=== PATIENT | male | born 1980 | race Caucasian/White ===

== ENCOUNTER 2024-09-01 09:24 | Outpatient (REF) | payer MEDICAID, SELFPAY ==
[2024-09-01 10:28] LABS: Estimated Average Glucose 105 mg/dL; Hemoglobin A1c % 5.3 % (<6.0)
[2024-09-01 10:33] LABS: Basophils Percent Auto 0.4 % (0-2); Eosinophils Absolute Auto 0.1 X10*3/uL (0.0-0.4); Eosinophils Percent Auto 2.3 % (0-4); Hematocrit 37.8 % (42.0-52.0); Hemoglobin 12.6 g/dl (14.0-18.0); Imm Gran Abs Auto 0.02 X10*3/uL (0.00-0.03); Imm Gran Pct Auto 0.4 % (0.0-0.4); Lymphocytes Percent Auto 36.5 % (20-40); MANUAL DIFF FLAG SCAN; Mean Corpuscular HGB Conc 33.3 g/dl (31.0-36.0); Mean Corpuscular Hemoglobin 30.8 pg (27.0-33.0); Mean Corpuscular Volume 92.4 fL (80.0-98.0); Mean Platelet Volume 10.5 fL (9.4-12.4); Monocytes Absolute Auto 0.4 X10*3/uL (0.1-1.2); Monocytes Percent Auto 7.6 % (2-11); Neutrophils Absolute Auto 2.9 x10*3/uL (2.0-8.3); Neutrophils Percent Auto 52.8 % (45-73); Platelet Count 98 X10*3/uL (160-400); Red Blood Count 4.09 X10*6/uL (4.60-5.80); Red Cell Distribution Width 15.4 % (11.0-16.0); White Blood Count 5.6 X10*3/uL (4.8-10.8)
[2024-09-01 10:51] LABS: SLIDE REVIEW VERIFIED
[2024-09-01 10:57] LABS: Alanine Aminotransferase 40 U/L (0-40); Albumin Level 3.7 g/dL (3.5-5.0); Alkaline Phosphatase 110 U/L (39-117); Anion Gap 12 (12-20); Aspartate Amino Transferase 35 U/L (5-37); Bilirubin Total 0.5 mg/dL (0.0-1.0); Blood Urea Nitrogen 13 mg/dL (9-16); Calcium 8.6 mg/dL (8.4-10.2); Carbon Dioxide 30 mmol/L (22-29); Chloride 103 mmol/L (96-108); Cholesterol 145 mg/dL (<200); Estimated Glomerular Filt Rate > 60; Glucose Random 98 mg/dL (60-115); HDL Cholesterol 41 mg/dL (>40); LDL Cholesterol Calculated 92 mg/dL (<100); Potassium 4.5 mmol/L (3.3-5.1); Sodium 140 mmol/L (135-145); Thyroid Stimulating Hormone 1.39 uIU/mL (0.32-4.0); Total Protein 8.1 g/dL (6.5-8.0); Triglycerides 63 mg/dL (<150)
== END 2024-09-01 09:25 | disposition home or self-care (01) ==
LOC: HO.10HDL 09:24
PROVIDERS: Visit Provider Internal Medicine
DX: E66.01 Morbid (severe) obesity due to excess calories (principal); F11.21 Opioid dependence, in remission; I10 Essential (primary) hypertension; M54.50 Low back pain, unspecified
CPT/HCPCS: 36415; 80053; 80061; 83036; 84443; 85025

== ENCOUNTER 2024-10-13 08:44 | Outpatient (REF) | payer MEDICAID, SELFPAY ==
--- NOTE | ~2024-10-13 | XR_ITS ---
XR KNEE RUSS 3V HISTORY: Knee pain. COMPARISON: None. TECHNIQUE: AP view bilateral knees standing, and AP, lateral and patellofemoral views bilateral knees. FINDINGS: RIGHT KNEE: No fracture, dislocation, or suspicious bone lesion. There is mild to moderate medial compartment joint space narrowing. The lateral compartment appears spared. There is mild patellofemoral compartment osteoarthritis and joint space narrowing. Mild spurring of the tibial spines. There is normal patellar alignment with minimal lateral patellar tilt. There is a moderate size joint effusion. Soft tissues appear normal. LEFT KNEE: No fracture, dislocation, or suspicious bone lesion. There is mild medial compartment joint space narrowing. The lateral compartment appears spared. There is mild patellofemoral compartment osteoarthritis and joint space narrowing. Mild spurring of the tibial spines. There is normal patellar alignment with minimal lateral patellar tilt. No evidence of joint effusion. Soft tissues appear normal. XR/XR Knee Russ 3V IMPRESSION: LEFT KNEE: 1. No acute bony abnormalities. 2. Mild medial and patellofemoral compartment osteoarthrosis. RIGHT KNEE: 1. No acute bony abnormalities. 2. Mild to moderate medial and mild patellofemoral compartment osteoarthrosis. 3. Moderate size joint effusion. Electronically signed by: Pranav Coronado MD 10/15/2024 11:29 AM EDT
== END 2024-10-13 08:45 | disposition home or self-care (01) ==
LOC: HO.HOSX 08:44
DX: M25.561 Pain in right knee (principal); M25.562 Pain in left knee; M17.0 Bilateral primary osteoarthritis of knee
CPT/HCPCS: 20610; 73562; 99212; J1010; J2003

== ENCOUNTER 2024-10-13 10:10 | Outpatient (AMB) | payer MEDICAID, SELFPAY ==
[2024-10-13 10:40] VITALS: BMI 56.2
--- NOTE | 2024-10-13 10:40 | MHC.OFFVIS ---
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 Patient reports that he has had ongoing bilateral knee pain for quite some time now. 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 He reports two previous fractures. He is taking Gabapentin and Tylenol for his pain which only provides mild relief. Noo previous brace use. 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 Patient reports that he has had ongoing bilateral knee pain for quite some time now. 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 He reports two previous fractures. He is taking Gabapentin and Tylenol for his pain which only provides mild relief. Noo previous brace use. [facility] Medical History (Updated 10/19/24 @ 11:48 by KITTY Jenkins) Anxiety Depression Morbid obesity Surgical History (Updated 09/16/24 @ 11:27 by Ania Le CMA) Hx of appendectomy Social History (Updated 09/16/24 @ 11:26 by Ania Le CMA) Household Members: Children Housing: Apartment Alcohol intake: never Patient Tobacco Use Status: Current everyday Tobacco user Cigarettes Per Day: 6 Substance Use Type: Marijuana Review of Systems Const All systems reviewed & are unremarkable except as noted in HPI and below Physical Exam Vital Signs: BMI result Body Mass Index 56.2 Extrem Other: On inspection, there is no visible deformity of the right knee No edema, erythema, ecchymosis noted No lacerations, abrasions, open areas No evidence of infection Patient reports no tenderness to palpation in the patella, parapatellar region, medial and lateral joint line, posterior knee Patient is able to extend the left knee to 0 degrees and flex to approximately 120 degrees without difficulty No ligamentous laxity noted Distal sensation intact Capillary refill brisk Negative [facility] Procedures AMB Joint Injection/Aspiration Joint Injection/Aspiration Primary Site: right knee Prep: site was prepped using aseptic technique, ethochloride spray was applied and injection warnings given Approach Used: anterolateral Procedure: The patient tolerated the procedure well and there was some relief with the local anesthesia Coding 81862 - Large joint Procedure code (CPT) selection complete Results Reviewed Results Reviewed: X-rays obtained in the office today and independently reviewed by me, Kannan Santos PA-C, demonstrate mild osteoarthritis of bilateral knees, worst in the medial compartment bilaterally. Assessment & Plan Assessment & Plan (1) Bilateral primary osteoarthritis of knee: Code(s): M17.0 - Bilateral primary osteoarthritis of knee Category: Medical Plan 1. Right knee osteoarthritis Patient was educated about this condition Patient was educated about the treatment options available The risks and benefits of a steroid injection including but not limited to risk of damage to blood vessels, nerves, tendons, infection, skin bleaching, failure to improve symptoms, increased pain, and possible need for further injections or other intervention were discussed with the patient and the patient wishes to proceed with the steroid injection. Once consent was obtained, I aseptically prepped the area over the anterolateral joint line of the right knee. I then injected the area over the lateral epicondyle with a combination of 80 mg of dexamethasone and 8 mL of 1% lidocaine. The patient tolerated the procedure well with no complications. If the patient continues to experience symptoms over the following few weeks or months, they can make an appointment to return and discuss alternative treatment measures, such as physical therapy. 2. Left knee osteoarthritis Patient states he would like to hold off on left knee injection at this time who see if injections effective in the right knee Patient will follow-up as needed or lifting injection Orders: Orders XR Knee Russ 3V 10/13/24 M25.569 - Pain in unspecified knee Coding Level of Care Code New Pt Level 3 (86049) Diagnoses Bilateral primary osteoarthritis of knee M17.0 CPT Codes Coding - Large joint: 60358 - Large joint ([id number])
== END 2024-10-13 11:25 | disposition home or self-care (01) ==
LOC: HO.HOS 10:11
PROVIDERS: PCP Internal Medicine
DX: M17.0 Bilateral primary osteoarthritis of knee (principal)
CPT/HCPCS: 20610; 99203

== ENCOUNTER → 2024-10-13 10:23 | Outpatient (BNV) | payer MEDICAID, SELFPAY | PROVIDERS: Visit Provider Radiology Diagnostic Radiology | DX: M17.0 Bilateral primary osteoarthritis of knee (principal); M25.461 Effusion, right knee; M25.462 Effusion, left knee | CPT/HCPCS: 73562 ==

== ENCOUNTER 2024-10-16 08:23 | Outpatient (AMB) | payer MEDICAID, SELFPAY ==
--- NOTE | 2024-10-16 08:24 | A.OFFVIS_ITS ---
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*: Details: Start time: 8.15am, End time: 9.05am ?I spent 45 minutes speaking with the patient on the phone plus an additional 5 minutes reviewing and updating records for a total of 50 minutes HPI Comments Details: Previous weight loss efforts: self diet and exercise Wakes up: 6am, Sleeps: 9pm Breakfast: 8am (eggs and toast with pathak, oatmeal, sandwich) Lunch: skips Dinner: 6pm (rice, chicken, pork chops ,pasta) Snacks: 1pm (corn flakes, bread, soup), 1-2 times after dinner (ice cream, cookies, chocolate) Exercise: none Beverages: Coffee: (2 cups/d with creamer with sugar), tea: none, soda: none, juice: (fruit punch daily), ETOH: none PFSH Medical History (Updated 10/16/24 @ 08:31 by Ambrosio Grubbs MD) Anxiety Depression Morbid obesity Surgical History (Updated 09/16/24 @ 11:27 by Ania Le CMA) Hx of appendectomy Social History (Updated 09/16/24 @ 11:26 by Ania Le CMA) Household Members: Children Housing: Apartment Alcohol intake: never Patient Tobacco Use Status: Current everyday Tobacco user Cigarettes Per Day: 6 Substance Use Type: Marijuana Telehealth Telehealth Telehealth Platform: Telephone Location of provider rendering services: practice address Location of patient: address on file Patient Identification confirmed using: Name, : Yes Telehealth method: voice only Patient verbally consented to treatment: Yes Patient verbally consented to billing insurance company: Yes Patient informed of any privacy concerns related to visit: Yes Minutes spent on Phone/Video with Pt.: 50 Assessment & Plan Assessment & Plan (1) Morbid obesity: Code(s): E66.01 - Morbid (severe) obesity due to excess calories Category: Medical Plan: 1.? Plan for lap sleeve gastrectomy. If diaphragmatic or ventral hernias are present at time of surgery, these will be repaired laparoscopically as well. I emphasized the importance of close follow-up, adherence to instructions and good communication. The surgery does not replace the need to change your lifestlyle which is the cause of the obesity problem. The surgery provides the motivation to try again to change your lifestyle, it reduces the appetite and make the transition to a better lifestyle easier and doubles the amount of weight you would lose compared to doing the lifestyle change without the surgery. You will need to be on a liquid diet with protein shakes for 2 weeks before surgery to maximize weight loss and boost your nutritional status to recover better from surgery and also for the first two weeks after surgery to let the stomach heal before we introduce other foods. After the first 2 weeks we will introduce protein bars and soft foods like scrambled eggs, cottage cheese and yogurt and after the 6th week will introduce meat, fish and cooked vegetables in small amounts. Over time you should be able to eat everything in small amounts. Side effects like nausea, vomiting, heartburn or abdominal pain are not common in the practice unless you are not following in the practice. This operation requires lifetime commitment to following in our practice and communication with me. You will much less weight and experience side effects if you don?t communicate or not following in the practice. Complications are rare and in our practice is about 1/10 of the national average. However, you can develop bleeding that may require transfusion (hasn?t happened for year in the practice), you may from complications (we did not have any deaths in the practice) and infections. Infections are usually a result of breakdown in communication or not understanding or following directions correctly. They are difficult to treat, they can happen during the first 6 weeks, they may require to be in the hospital for weeks or even months, not being able to eat by mouth and you may have drains and surgeries to try and correct the issue. Other risks and complications include possible conversion to an open procedure, leaks, small bowel obstruction, blood clots, cardiac, or pulmonary complications, as custodial complications such as ulcers, insufficient weight loss and vitamin deficiencies. 2.? Nutritional counseling. Start with one premade PREMIER protein shake (buy at [employer] or [employer]) at 7am-9am, 1 protein bar (Fit Crunch protein bars, buy at [employer] or [employer]) at 10am-12pm, another premade PREMIER shake at 1pm-3pm, another Fit Crunch protein bar at 4pm-6pm, dinner at 7pm (10 forks of protein and 10 forks of salad/vegetables) So you do 2 protein shakes, 2 protein bars and one meal per day. Meal to include lean meat (beef, fish, pork, turkey, chicken), or bolivian yogurt, or egg whites, or beans with a salad with olive oil and fruits (berries, pears, apples, kiwi). Avoid salt, breads, potatoes, rice, pasta, desserts. 3. Each shake would be drunk slowly, like coffee in a period of 2 hours. 4. Cut each bar in 4 pieces and eat each piece in 30min ?to make each bar last 2 hours. 5. I emphasized the importance of measuring accurately the food portion and measure it when serving the food in plate 6. The meal portions include 10 full-size forks of meat and 10 full-size forks of salad. You always eat the meat portion but you can replace up to 5 forks for salad/vegetables with rice, potatoes or pasta, or a fruit ?if you like. The less you do it the better weight loss will be. 7. One full-size fork is what it can be scooped on the fork without falling aside and not what can be bit with the fork. Use regular forks like those you find in a typical restaurant. 8.? Please buy the body composition scale we discussed and send me weight measurements as soon as possible and then once a week. Always include your diet and exercise plan. 9. Start walking outside daily, tracking calories with a goal of 300 calories per day, daily. Goal is to burn 2000 calories per week on exercise, which means either 300 calories daily. 10. The best choice would be to purchase a stationary bike at home that can track calories. Let me know if you do so I can give you an exercise plan. 11. Goal is to lose at least 1.5-2lbs per week 12. Goal to lose 10% of your weight before surgery, which is about 35lbs. Ultimate weight goal: 340lbs before surgery 13. Please follow the diet plan exactly without any change. If you don't like something about the plan or you feel hungry you need to communicate with me so I can help you revise the plan. You should not change the plan yourself 14. To be scheduled for EGD to assess the stomach's anatomy. The possibility of biopsies was discussed. Patient needs to avoid use of NSAIDs and aspirin for 1 week prior to EGD. You must be on liquids only the day before your endoscopy. Risks of perforation and bleeding was discussed with the patient. This will be an outpatient procedure with IV sedation. Orders: Orders Hemoglobin A1c Today E66.01 - Morbid (severe) obesity due to excess calories H Pylori Breath Test Today E66.01 - Morbid (severe) obesity due to excess selvin ories IRON PROFILE Today E66.01 - Morbid (severe) obesity due to excess calories Comprehensive Met. Panel Today E66.01 - Morbid (severe) obesity due to excess calories Vitamin A Today E66.01 - Morbid (severe) obesity due to excess calories Ferritin Today E66.01 - Morbid (severe) obesity due to excess calories XR chest 2V Today E66.01 - Morbid (severe) obesity due to excess calories RT home sleep study Today E66.01 - Morbid (severe) obesity due to excess calories Insulin Today E66.01 - Morbid (severe) obesity due to excess calories Complete Blood Count Auto Diff Today E66.01 - Morbid (severe) obesity due to excess calories Lipid Panel Today E66.01 - Morbid (severe) obesity due to excess calories Vitamin B12 and Folate Today E66.01 - Morbid (severe) obesity due to excess calories Zinc Today E66.01 - Morbid (severe) obesity due to excess calories C Reactive Protein Today E66.01 - Morbid (severe) obesity due to excess calories Vitamin B1 Today E66.01 - Morbid (severe) obesity due to excess calories TSH reflex Free T4 Today E66.01 - Morbid (severe) obesity due to excess calories Vitamin D 25-OH Total Today E66.01 - Morbid (severe) obesity due to excess calories US abdomen comp w elastography Today E66.01 - Morbid (severe) obesity due to excess calories ECG 12 lead EKG Today E66.01 - Morbid (severe) obesity due to excess calories FL upper GI w air Today E66.01 - Morbid (severe) obesity due to excess calories Referrals Behavioral Health Referral E66.01 - Morbid (severe) obesity due to excess calories Nutrition/Dietitian Referral E66.01 - Morbid (severe) obesity due to excess calories
[2024-10-16 08:38] VITALS: BMI 56.2
== END 2024-10-16 09:06 | disposition home or self-care (01) ==
LOC: HO.HBS 08:23
PROVIDERS: Visit Provider Surgery
DX: E66.01 Morbid (severe) obesity due to excess calories (principal)
CPT/HCPCS: 99204

== ENCOUNTER → 2024-10-16 08:23 | Outpatient (BNVA) | payer MEDICAID, SELFPAY | PROVIDERS: Visit Provider Surgery ==

== ENCOUNTER 2024-11-16 12:17 | Outpatient (AMB) | payer OTHER, SELFPAY ==
--- NOTE | 2024-11-16 12:10 | A.OFFWM_ITS ---
Intake Intake Visit Reasons: TV BH Intake Allergies No Known Allergies Allergy (Verified 10/16/24 08:27) FOR[facility]LY [facility] Medical History (Updated 10/19/24 @ 11:48 by KITTY Jenkins) Anxiety Depression Morbid obesity Surgical History (Updated 09/16/24 @ 11:27 by Ania Le CMA) Hx of appendectomy Social History (Updated 09/16/24 @ 11:26 by Ania Le CMA) Household Members: Children Housing: Apartment Alcohol intake: never Patient Tobacco Use Status: Current everyday Tobacco user Cigarettes Per Day: 6 Substance Use Type: Marijuana Behavioral Health Assessment Weight Management Therapy Therapy Notes Details The patient is a 44-year-old male presenting for initial visit to start behavioral health assessment as part of the surgical weight loss program. He is self-referred, having learned about the program through family members and friends who have undergone weight loss surgery. He reports motivation to improve his overall health, enhance his physical appearance, and feel better about himself. The patient is engaged in ongoing mental health treatment, attending weekly telehealth therapy sessions and monthly psychiatric appointments. He is currently prescribed Seroquel 200 mg for sleep. He reports a history of trauma, depression, anxiety, and substance use. In addition, he receives medication- assisted treatment (MAT) and participates in weekly substance use counseling at [facility]. Presenting Concerns Referral Source WMP-Provider Reason for referral Completion of behavioral health assessment as part of process for weight-loss surgery. Precipitating Event Obesity. Living Situation Current Living Situation Relative's/Guardian's Shailesh At risk of losing current housing? No Satisfied with current living situation? Yes Comments PT lives at his oldest daughter home, and her 2 grandkids. Food/Weight/Diet Expectations of change Goal to lose 10% of your weight before surgery, which is about 35 lbs. Ultimate weight goal: 340 lbs before surgery Most recent weight as of today 11/16/2024: 383 lbs Patient goals are PT is implementing the following: Current meal plan: 2 protein shakes, 2 protein bars and one meal per day. Exercise plan: History/Relationship with food Example of meals before starting the program: Breakfast: Lunch: Dinner: Snacks: Drinks/Liquids: History/Relationship with weight In the last 10 years, the patient's Lowest weight was and highest Social History Family history and relationship PT is single, never . He has 3 daughters. Father , mother alive, he has 3 siblings, 1 . He is the oldest of his siblings. 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 He was recently in [place] caring for his mother, who is older and had some medical issues and had a surgery. Developmental history and status PT had issues since he was born; he used a walking device as his feet were not aligned. Started school late due to other physical issues. Also had some attentional is sues. Social support Mother. His children don't support him having surgery. Community support and [facility] providers. Latter-Day/Spirituality Raised as Anabaptism, at this time He believes in God but doesn't practice or is aligned to any yazdanism. Cultural/Ethnic information PT was born in [place]. He just relocated back to [place] about a year ago; he initially moved here at age 5, but has been moving back and forth a couple of times in his life. PT is bilingual. Mental Health and Addiction Treatment Current/Past substance abuse? Yes Comments PT has a history of heroin, cocaine use. Started using Substances at age 11. Did detox programs several years ago. Sober 4 years ago. PT currently attends a MAT in [place], [place] gets prescribed Methadone 80mg daily. Alcohol: None. Cigarettes/Tobacco: 1-2 at day. couple times at day. Cannabis/Edibles: None. Current/Past addictive behavior concerns? Yes Psychiatric history PT attends counseling and outpatient psychiatric treatment. Sees his therapist weekly over telehealth and a prescriber every month and gets prescribed Seroquel 200mg for sleep. PT reports a history of trauma, depression, anxiety, and substance use. Also receives medication-assisted treatment for N[facility] at [facility] and meets with [facility] counselor weekly. * PT will provide information about MH providers at the next visit. Questionnaires PHQ-9 Over the last 2 weeks, how often have you been bothered by any of the following problems? 1. Little interest or pleasure in doing things: more than half the days 2. Feeling down, depressed, or hopeless: several days 3. Trouble falling or staying asleep, or sleeping too much: several days 4. Feeling tired or having little energy: more than half the days 5. Poor appetite or overeating: several days 6. Feeling bad about yourself - or that you are a failure or have let yourself or your family down: nearly every day 7. Trouble concentrating on things, such as reading the newspaper or watching television: several days 8. Moving or speaking so slowly that other people could have noticed. Or the opposite - being so fidgety or restless that you have been moving around a lot more than usual: not at all 9. Thoughts that you would be better off or of hurting yourself in some way: not at all Total score: 11 Depression Screening Interpretation: Positive (From new PT pack done 09/16/2024) Depression Screening Done: Yes Source: Developed by Drs. Alverto Thompson, Coleen Loaiza, Dayton Khoury and colleagues, with an educational nishi from [employer] Binge Eating Scale Group 1 A. I don't feel self-conscious about my wt. or body size when I'm with others. B. I feel concerned about how I look to others, but it normally does not make me fell disappointed with myself C. I do get self-conscious about my appearance and wt. which makes me feel disappointed in myself. D. I feel very self-conscious about my wt. and frequently I feel intense shame and disgust for myself. I try to avoid social contacts because of my self- consciousness. Response Group 1: D Group 2 A. I don't have any difficulty eating slowly in the proper manner. B. Although I seem to gobble down foods, I don't end up feeling stuffed because of eating to much. C. At times, I tend to eat quickly and then, I feel uncomfortably full afterwards. D. I have the habit of bolting down my food, without really chewing it. When this happens I usually feel uncomfortably stuffed because I've eaten to much. Response Group 2: C Group 3 A. I feel capable to control my eating urges when I want to. B. I feel like I have failed to control my eating more than the average person. C. I feel utterly helpless when it comes to feeling in control of my eating urges. D. Because I feel so helpless about controlling my eating I have become very desperate about trying to get control. Response Group 3: B Group 4 A. I don't have the habit of eating when I'm bored. B. I sometimes eat when I'm bored, but often I'm able to get busy and get my mind off food. C. I have a regular habit of eating when I'm bored, but occasionally, I can use some other activity to get my mind off eating. D. I have a strong habit of eating when I'm bored. Nothing seems to help me breath the habit. Response Group 4: C Group 5 A. I'm usually physically hungry when I eat something. B. Occasionally, I eat something on impulse even though I really am not hungry. C. I have the regular habit of eating foods, that I might not really enjoy, to satisfy a hungry feeling even though physically, I don't need the food. D. Although I'm not physically hungry, I get a hungry feeling in my mouth that only seems to be satisfied when I eat a food, like sandwich, that fills my mouth. Sometimes, when I eat the food to satisfy my mouth hunger, I then spit the food out so I won't gain weight. Response Group 5: D Group 6 A. I don't feel any guilt or self-hate after I overeat. B. After I overeat, occasionally I feel guilt or self-hate. C. Almost all the time I experience strong guilt or self-hate after I overeat. Response Group 6: C Group 7 A. I don't lose total control of my eating when dieting even after periods when I overeat. B. Sometimes when I eat a forbidden food on a diet, I feel like I blew it and eat even more. C. Frequently, I have the habit of saying to myself, I've blown it now, why not go all the way, when I overeat on a diet. When that happens I eat more. D. I have a regular habit of starting a strict diets for myself but I break the diets by going on an eating binge. My life seems to be either a feast or famine. Response Group 7: D Group 8 A. I rarely eat so much food that I feel uncomfortably stuffed afterwards. B. Usually about once a month, I each such a quantity of food, I end up feeling very stuffed. C. I have regular periods during the month when I eat large amounts of food, either at mealtime or at snacks. D. I eat so much food that I regularly feel quite uncomfortable after eating and sometimes a bit nauseous. Response Group 8: B Group 9 A. My level of calorie intake does not go up very high or go down very low on a regular basis. B. Sometimes after I overeat, I will try to reduce my caloric intake to almost nothing to compensate for the excess calories I've eaten. C. I have a regular habit of overeating during the night. It seems that my routine is not to be hungry in the morning but overeat in the evening. D. In my adult years, I have had week-long periods where I practically starve myself. This follows periods when I overeat. It seems I live a life of either feast or famine. Response Group 9: C Group 10 A. I usually am able to stop eating when I want to. I know when enough is enough. B. Every so often, I experience a compulsion to eat which I can't seem to control. C. Frequently, I experience strong urges to eat which I seem unable to control, but at other times I can control my eating urges. D. I feel incapable of controlling urges to eat. I have a fear of not being able to stop eating voluntarily. Response Group 10: A Group 11 A. I don't have any problem stopping eating when I feel full. B. I usually can stop eating when I feel full but occasionally overeat leaving me feeling uncomfortably stuffed. C. I have a problem stopping eating once I start and usually I feel uncomfortably stuffed after I eat a meal. D. Because I have a problem not being able to stop eating when I want, I sometimes have to induce vomiting to relieve my stuffed feeling. Response Group 11: A Group 12 A. I seem to eat just as much when I'm with others, Family social gatherings as when I'm by myself. B. Sometimes, when I'm with other persons, I don't eat as much as I want to eat because I'm self-conscious about my eating. C. Frequently, I eat only a small amount of food when others are present, because I'm very embarrassed about my eating. D. I feel so ashamed about overeating that I pick times to overeat when I know no one will see me. I feel like a closet eater. Response Group 12: B Group 13 A. I eat three meals a day with only an occasional between meal snack. B. I eat 3 meals a day, but I also normally snack between meals. C. When I am snacking heavily, I get in the habit of skipping regular meals. D. There are regular periods when I seem to be continually eating, with no planned meals. Response Group 13: B Group 14 A. I don't think much about trying to control unwanted eating urges. B. At least some of the time, I feel my thoughts are pre-occupied with trying to control my eating urges. C. I feel that frequently I spend much time thinking about how much I ate or about trying not to eat anymore. D. It seems to me that most of my waking hours are pre-occupied by thoughts about eating or not eating. I feel like I'm constantly struggling not to eat. Response Group 14: A Group 15 A. I don't think about food a great deal. B. I have strong craving for food but they last only for brief periods of time. C. I have days when I can't seem to think about anything else but food. D. Most of my days seem to be pre-occupied with thoughts about food. I feel like I live to eat. Response Group 15: B Group 16 A. I usually know whether or not I'm physically hungry. I take the right portion of food to satisfy me. B. Occasionally, I feel uncertain about knowing whether or not I'm physically hungry. A these times it's hard to know how much food I should take to satisfy me. C. Even though I might know how many calories I should eat, I don't have any idea what is a normal amount of food for me. Response Group 16: B Binge Eating Score: 23 Score less than 17 Minimal Risk Score between 18-26 Moderate Risk Score between 27-46 High Risk Assessment & Plan Assessment & Plan (1) History of substance dependence: Code(s): F19.21 - Other psychoactive substance dependence, in remission (2) Trauma and stressor-related disorder: Code(s): F43.9 - Reaction to severe stress, unspecified (3) Pre-bariatric surgery psychological evaluation: Code(s): Z71.89 - Other specified counseling Plan The patient has not been cleared at this time, as the behavioral health assessment was not completed during today?s visit. He will return in three weeks to continue the evaluation. Next Appointment: December 07, 2024 at 11:00 AM Telehealth ? Video Visit Telehealth Telehealth Telehealth Platform: [facility] Location of provider rendering services: other Location of patient: address on file Patient Identification confirmed using: Name, : Yes Telehealth method: voice only Patient verbally consented to treatment: Yes Patient verbally consented to billing insurance company: Yes Patient informed of any privacy concerns related to visit: Yes Minutes spent on Phone/Video with Pt.: 50 Coding Level of Care Code New Pt Tele Psy Diag Eval (64396) Patient Type New Diagnoses History of substance dependence F19.21 Trauma and stressor-related disorder F43.9 Pre-bariatric surgery psychological evaluation Z71.89 Time Spent (min) 50
== END 2024-11-16 13:07 | disposition home or self-care (01) ==
LOC: HO.HBST 12:17
PROVIDERS: PCP Internal Medicine; Visit Provider Counselor Mental Health
DX: F19.21 Other psychoactive substance dependence, in remission (principal); F43.9 Reaction to severe stress, unspecified; Z71.89 Other specified counseling
CPT/HCPCS: 90837

== ENCOUNTER → 2024-11-16 12:17 | Outpatient (BNVA) | payer OTHER, MEDICAID, SELFPAY | PROVIDERS: PCP Internal Medicine; Visit Provider Counselor Mental Health ==

== ENCOUNTER 2024-11-25 08:17 | Day surgery (SDC) | payer MEDICAID, SELFPAY ==
[2024-11-23 12:31] VITALS: BMI 56.2
--- NOTE | 2024-11-23 12:35 | HO.ANESPROP2 ---
Documented by User: Deisi Bailey NP 11/23/24 12:36 HPI - Anesthesia Eval Consult details Narrative: 44yo M for Upper Endoscopy Methadone daily PMFSH Active Problems Active Problems: All Active Problems Bilateral primary osteoarthritis of knee (Acute) Knee pain (Acute) Anxiety (Acute) Depression (Acute) Morbid obesity (Acute) Past Medical History Medical History Osteoarthritis Anxiety Depression Morbid obesity Surgical History Surgical History H/O hand surgery Hx of appendectomy Social History Social History Household Members: Children Housing: Apartment Alcohol intake: never Patient Tobacco Use Status: Current everyday Tobacco user Tobacco use type: Cigarette Cigarettes Per Day: 3 Use of substances other than those prescribed or required for medical reasons: Yes Substance Use Type: Marijuana Are you DNR?: No Advance Directives: No Advance Directives Information Provided: Yes Meds Allergies Allergy/AdvReac Type Severity Reaction Status Date / Time No Known Allergies Allergy Verified 10/16/24 08:27 Home Medications ?Medication ?Instructions ?Recorded ?Confirmed ?Last Taken ?Type gabapentin 400 mg capsule 400 mg PO TID 09/16/24 11/23/24 Unknown History methadone 5 mg/5 mL oral solution 80 mg PO DAILY 09/16/24 11/23/24 11/25/24 History quetiapine 200 mg tablet (Seroquel) 200 mg PO BEDTIME 09/16/24 11/23/24 Unknown History Exam Height,Weight and Vital Signs: Height 5 ft 8.5 in Weight 170.211 kg Assessment and Plan Assessment Anesthesia Assessment: Chart Reviewed Documented by User: Kirsty Grijalva MD 11/25/24 09:42 PMFSH Past Medical History Medical History Osteoarthritis Anxiety Depression Morbid obesity Surgical History Surgical History H/O hand surgery Hx of appendectomy History of Problems with Anesthesia: No Social History Social History Household Members: Children Housing: Apartment Alcohol intake: never Patient Tobacco Use Status: Current everyday Tobacco user Tobacco use type: Cigarette Cigarettes Per Day: 3 Use of substances other than those prescribed or required for medical reasons: Yes Substance Use Type: Marijuana Are you DNR?: No Advance Directives: No Advance Directives Information Provided: Yes Meds Allergies Allergy/AdvReac Type Severity Reaction Status Date / Time No Known Allergies Allergy Verified 10/16/24 08:27 Home Medications ?Medication ?Instructions ?Recorded ?Confirmed ?Last Taken ?Type gabapentin 400 mg capsule 400 mg PO TID 09/16/24 11/23/24 Unknown History methadone 5 mg/5 mL oral solution 80 mg PO DAILY 09/16/24 11/23/24 11/25/24 History quetiapine 200 mg tablet (Seroquel) 200 mg PO BEDTIME 09/16/24 11/23/24 Unknown History Exam Airway Mallampati Class: III TM Dist: >3cm Neck ROM: Full Loose/Missing/Broken Teeth: Yes and Upper Heart: RRR Lungs: CTA Assessment and Plan Assessment Anesthesia Assessment: Anesthesia Plan Discussed Final Anesthetic Review History of Problems with Anesthesia: No NPO: Yes ASA Class: III Final Preanesthetic Review: Meds/Allgs Chart Reviewed, Consent Obtained/Reviewed and Anes Risks/Benef Reviewed Patient Risk: Intermediate Procedure Risk: Intermediate Anesthetic Plan Anesthetic Plan: MAC: Disposition: Standard PACU
[2024-11-25 09:17] VITALS: BMI 54.8
[2024-11-25 09:23] VITALS: BP 114/69; PULSE 69; RESP 16; TEMP 36.3; O2SAT 96
[2024-11-25] MEDS: Lactated Ringers 1,000 ML 80 ML IVCONT (09:39)
--- NOTE | 2024-11-25 09:54 | MHC.SHP ---
Pre-Procedural Eval Section A - 24 Hr Update-Section A only Date of Service: 11/25/24 The patient is an INPATIENT: No The patient has been examined within 24 hours of the surgical procedure. The History & Physical has been completed within 30 days and I have reviewed it.: Yes Section B - Complete if H&P > 30 days Chief Complaint: Morbid (severe) obesity due to excess calories Relevant Family History (Specify if Yes): No Relevant Social History: None Present Medications: None Medical History: No relevant PMH History of Previous Operations: No relevant previous surgery Allergies: Allergies Allergy/AdvReac Type Severity Reaction Status Date / Time No Known Allergies Allergy Verified 10/16/24 08:27 Review of Systems Sugical H&P ROS: Negative: Constitution, Cardiovascular, Respiratory, Neurological, Psychiatric, Hem-Onc, Allergic/Immunologic, Gastrointestinal, Genitourinary, Musculoskeletal, Integumentary, Endocrine and Eyes/Ears/Nose/Throat Exam Surgical H&P Exam: Normal: HEENT, Normal: Heart, Normal: Lungs, Normal: Extremities, Normal: Abdomen, Normal: Skin and Normal: Neurological Plan Diagnosis/Plan: Unchanged (EGD to assess the stomach's anatomy. Risks of bleeding and perforation were discussed with the patient and he is in agreement with the plan.) I have reviewed the history and physical and performed a pertinent physical examination on my patient. No changes have occurred unless specified. Time Spent With Patient Time: Total time managing care of this patient today ____ minutes.
--- NOTE | 2024-11-25 09:56 | P.BOP_ITS ---
Brief Operative Note Date of Service: 11/25/24 Pre-op diagnosis: Morbid obesity Post-op diagnosis: same Procedure: PROCEDURE DATE: 11/25/2024 PREOPERATIVE DIAGNOSIS: Morbid obesity POSTOPERATIVE DIAGNOSIS: ?Same as above. 1) gastritis PROCEDURE: Gnfmxcue-ldffhm-yepxkieatoqt with biopsies Surgeon: Ramez Grubbs M.D.. Ph.D. Roof Shingler: None ? Anesthesia: IV sedation Estimated blood loss: ?Minimal FINDINGS AND PROCEDURE: ? OPERATIVE INDICATIONS: ?The patient is a 44 year old male known to me who is interested in bariatric surgery. Based on this information I recommended an upper endoscopy to evaluate the stomach's anatomy. Risks and complications of the surgery were discussed with the patient in advance particularly the possibility of perforation or bleeding that may require surgical intervention. The patient understood the risks and was in agreement with the plan. ? PROCEDURE: After informed consent was obtained by the patient, the patient was ?transferred to the Operating Room and was placed in the supine position.? After successful induction of IV sedation, a mouth block was inserted and the patient was placed in the left lateral decubitus position. An upper endoscopy was performed next, the oropharynx and esophagus appeared within the normal limits. There was no hiatal hernia. The z-line was smooth. Two biopsies were obtained from the distal esophagus 2-3 cm proximal to the GE junction and two additional biopsies from the GE junction. The stomach was entered and it appeared to be of normal size. There was mild gastritis. There was no stricture or ulcer. A biopsy was obtained from the gastric fundus and the antrum. No significant bleeding was noted from any of the biopsy sites. Retroflexion of the scope confirmed a normal GE junction. The scope was then advanced into the duodenum which appeared to be normal as well. At that point the duodenum ?and the stomach were decompressed and the scope was withdrawn from the patient's mouth. The patient extubated and was transferred in stable condition to the Recovery Room for further care. I was present and performed all steps of the procedure. There were no residents to assist with this case. Lang Grubbs M.D., Ph.D. Surgeon: Ambrosio Grubbs MD Anesthesia: MAC Was an Roof Shingler used for this Procedure?: No Estimated blood loss (mL): 0 IV fluids (mL): 400 Urine output (mL): 0 (No Fnog to record output) Pathology: other (1) antrum x1, 2) fundus x1, 3) GE junction x2, 4) distal esophagus x2) Condition: stable Disposition: PACU
[2024-11-25 10:10] VITALS: BP 128/70; PULSE 70; RESP 12; TEMP 36.2; O2SAT 97
[2024-11-25 10:25] VITALS: BP 130/70; PULSE 80; RESP 18; TEMP 36.4; O2SAT 96
== END 2024-11-25 10:58 | disposition home or self-care (01) ==
PROVIDERS: PCP Internal Medicine; Visit Provider Surgery
PROC: 0DJ08ZZ Inspection of Upper Intestinal Tract, Via Natural or Artificial Opening Endoscopic (ICD-10-PCS; CPT 43235; principal; 2024-11-25 10:50)
DX: E66.01 Morbid (severe) obesity due to excess calories (principal); Z68.43 Body mass index [BMI] 50.0-59.9, adult; K29.60 Other gastritis without bleeding; F32.A Depression, unspecified; F41.9 Anxiety disorder, unspecified; Z79.899 Other long term (current) drug therapy; F17.210 Nicotine dependence, cigarettes, uncomplicated; Z98.890 Other specified postprocedural states
CPT/HCPCS: 43239; 88305; 88313; 88342; J2003; J2704

== ENCOUNTER → 2024-11-25 08:17 | Outpatient (BNV) | payer MEDICAID, SELFPAY | PROVIDERS: PCP Internal Medicine; Visit Provider Surgery | DX: K29.70 Gastritis, unspecified, without bleeding (principal) | CPT/HCPCS: 43239 ==

== ENCOUNTER 2024-12-01 08:29 | Outpatient (REF) | payer MEDICAID, SELFPAY ==
--- NOTE | ~2024-12-01 | US_ITS ---
EXAMINATION: US COMPLETE ABDOMEN WITH LIVER ELASTOGRAPHY CLINICAL INFORMATION: Obesity due to excess calories. COMPARISON: None available. TECHNIQUE: Real-time imaging of the abdominal viscera. Noninvasive ultrasound liver fibrosis assessment is performed using Zuleyka ElastPQ point quantification shear wave elastography (pSWE) with a C5-2 MHz transducer. Multiple elastography samples are obtained. FINDINGS: As per technologist note, severely limited exam due to patient body habitus. PANCREAS: The visualized pancreatic head and body are normal in appearance. The remainder of the pancreas is obscured from visualization by the overlying bowel gas. ABDOMINAL AORTA: No aortic aneurysm is seen. INFERIOR VENA CAVA: Visualized portions are normal. LIVER: The liver is mildly enlarged. It is normal in contour. There is diffusely increased parenchymal echogenicity. No focal lesion or intrahepatic biliary duct dilatation. The right lobe measures 19.8 cm in length. The left lobe measures 14.5 cm in length. Portal flow is towards the liver (hepatopetal). Shear wave liver elastography median stiffness is 1.15 m/s (reference: normal median stiffness is 1.3 m/s or less). IQR/median stiffness to assess sampling precision is 0.19 (reference: good quality data set is IQR/median stiffness of 0.15 or less). GALLBLADDER: The gallbladder is physiologically distended without evidence of stones, sludge, polyps, wall thickening or pericholecystic fluid. COMMON BILE DUCT: Borderline dilated measuring 0.9 cm in diameter. No obstructing abnormality identified. RIGHT KIDNEY: No hydronephrosis. No renal calculi or focal parenchymal lesions. The kidney measures 13.6 cm in maximum dimension. LEFT KIDNEY: No hydronephrosis. No renal calculi or focal parenchymal lesions. The kidney measures 12.0 cm in maximum dimension. SPLEEN: Unremarkable. The spleen measures 15.6 cm in maximum dimension. FREE FLUID: None seen. US/US abdomen comp w elastography IMPRESSION: 1. Diffusely increased echogenicity of the liver without focal lesion. This is likely secondary to hepatic steatosis. No intrahepatic biliary dilatation. 2. Liver elastography: Although measurements appear to rule out compensated advanced chronic liver disease, there is statistical variability of the sampling which decreases accuracy. 3. Normal gallbladder. Top normal common bile duct at 0.9 cm. 4. Normal kidneys and spleen. REFERENCE: Society of Radiologists in Ultrasound Liver Stiffness Thresholds (2019): LIVER STIFFNESS THRESHOLDS: *Liver Stiffness equal or less than 1.3 m/s: High probability of being normal. *Liver Stiffness less than 1.7 m/s: In the absence of other known clinical signs, rules out compensated advanced chronic liver disease. *Liver Stiffness 1.7-2.1 m/s: Suggestive of compensated advanced chronic liver disease but need further test for confirmation. *Liver Stiffness over 2.1 m/s: Rules in compensated advanced chronic liver disease. *Liver Stiffness over 2.4 m/s: Suggestive of clinically significant portal hypertension. QUALITY OF DATA SET: *IQR/Median value equal or less than 0.15 implies a quality data set. *IQR/Median value over 0.15 implies a poor quality data set. SIGNIFICANT CHANGE FROM PRIOR EXAM: Significant change if liver stiffness measurement is 10% or greater from prior exam. OTHER CONSIDERATIONS: The stage of liver fibrosis may be overestimated in the setting of acute hepatitis, liver inflammation, elevated liver function tests, hepatic vascular congestion, obstructive cholestasis, non-fasting state, and infiltrative diseases such as amyloidosis and lymphoma. In some patients with NAFLD, the liver stiffness thresholds for compensated advanced chronic liver disease may be lower. In causes other than viral hepatitis and NAFLD, liver stiffness thresholds are not well established. Electronically signed by: Pranav Coronado MD 12/01/2024 10:52 AM EDT
--- NOTE | ~2024-12-01 | XR_ITS ---
EXAMINATION: XR CHEST CLINICAL INFORMATION: E66.01 - Morbid (severe) obesity due to excess calories COMPARISON: None available. TECHNIQUE: 2 views of the chest were obtained. FINDINGS: No consolidation, pleural effusion or pneumothorax. Cardiomediastinal silhouette size is normal. Osseous structures are intact. Patient's large body habitus/obesity. XR/XR chest 2V IMPRESSION: No acute airspace disease. Normal chest x-ray. Electronically signed by: Eric Brink MD 12/01/2024 09:17 AM EDT
== END 2024-12-01 08:30 | disposition home or self-care (01) ==
LOC: HO.US 08:29
PROVIDERS: PCP Internal Medicine; Visit Provider Surgery
DX: E66.01 Morbid (severe) obesity due to excess calories (principal)
CPT/HCPCS: 71046; 76700; 76981

== ENCOUNTER → 2024-12-01 08:32 | Outpatient (BNV) | payer MEDICAID, SELFPAY | PROVIDERS: PCP Internal Medicine; Visit Provider Radiology Diagnostic Radiology | DX: E66.01 Morbid (severe) obesity due to excess calories (principal) | CPT/HCPCS: 71046; 76700; 76981 ==

== ENCOUNTER 2024-12-15 08:59 | Outpatient (AMB) | payer MEDICAID, SELFPAY ==
--- NOTE | 2024-12-15 09:23 | MHC.OFFVIS ---
Vital Signs 12/15/24 09:23 Height 50 ft Weight 382 lb BMI 0.7 Intake Visit Reasons: Inj-Lt knee inj Intake Note: Zachary is a 44 year old male who presents today for a left knee cortisone injection. Patient had right knee injection done on 10/13/24 , states he had good relief and would like to repeat injection today. Allergies No Known Allergies Allergy (Verified 12/15/24 09:25) HPI HPI Inj-Lt knee inj: Details: Zachary is a 44 year old male who presents today for a left knee cortisone injection. Patient had right knee injection done on 10/13/24 , states he had good relief and would like to left-sided injection today. [facility] Medical History Osteoarthritis Anxiety Depression Morbid obesity Surgical History H/O hand surgery Hx of appendectomy Social History Household Members: Children Housing: Apartment Alcohol intake: never Patient Tobacco Use Status: Current everyday Tobacco user Tobacco use type: Cigarette Cigarettes Per Day: 3 Substance Use Type: Marijuana Review of Systems Const All systems reviewed & are unremarkable except as noted in HPI and below Physical Exam Vital Signs: BMI result Body Mass Index 0.7 Office Procedures Joint Inj/Aspir; Non-Pain Clin Joint Injection/Drain Prep: site was prepped using aseptic technique and injection warnings given Approach Used: anterolateral Procedure: The patient tolerated the procedure well, but had some pain with the injection and there was some relief with the local anesthesia Shoulders, Hips, Knees, Knee Large Joint Injection 58061: Left Knee Coding Procedure code (CPT) selection complete Assessment & Plan Assessment & Plan (1) Bilateral primary osteoarthritis of knee: Code(s): M17.0 - Bilateral primary osteoarthritis of knee Category: Medical Plan 1. Left knee osteoarthritis The risks and benefits of a steroid injection including but not limited to risk of damage to blood vessels, nerves, tendons, infection, skin bleaching, failure to improve symptoms, increased pain, and possible need for further injections or other intervention were discussed with the patient and the patient wishes to proceed with the steroid injection. Once consent was obtained, I aseptically prepped the area over the anterolateral joint line of the left knee. I then injected the area over the lateral epicondyle with a combination of 80 mg of dexamethasone and 8 mL of 1% lidocaine. The patient tolerated the procedure well with no complications. If the patient continues to experience symptoms over the following few weeks or months, they can make an appointment to return and discuss alternative treatment measures, such as physical therapy. Follow-up prn Coding Level of Care Code Procedure Only Diagnoses Bilateral primary osteoarthritis of knee M17.0 CPT Codes Shoulders, Hips, Knees, - Knee Large Joint Injection [id number]: Left Knee ([id number])
== END 2024-12-15 09:37 | disposition home or self-care (01) ==
LOC: HO.HOS 08:59
DX: M17.0 Bilateral primary osteoarthritis of knee (principal)
CPT/HCPCS: 20610

== ENCOUNTER → 2024-12-15 08:59 | Outpatient (BNVA) | payer MEDICAID, SELFPAY | DX: M17.0 Bilateral primary osteoarthritis of knee (principal) | CPT/HCPCS: 20610; J1010; J2003 ==

== ENCOUNTER 2024-12-28 14:15 | Outpatient (AMB) | payer OTHER, SELFPAY ==
--- NOTE | 2024-12-28 14:10 | A.OFFWM_ITS ---
Intake Intake Visit Reasons: VIDEO BH Intake Part 2 Allergies No Known Allergies Allergy (Verified 12/15/24 09:25) COUNTS INCLUDE 234 BEDS AT THE [facility] Medical History Osteoarthritis Anxiety Depression Morbid obesity Surgical History H/O hand surgery Hx of appendectomy Social History Household Members: Children Housing: Apartment Alcohol intake: never Patient Tobacco Use Status: Current everyday Tobacco user Tobacco use type: Cigarette Cigarettes Per Day: 3 Substance Use Type: Marijuana Behavioral Health Assessment Weight Management Therapy Therapy Notes Details The patient is a 44-year-old male presenting for a second visit to continue behavioral health assessment as part of the surgical weight loss program. He is self-referred, having learned about the program through family members and friends who have undergone weight loss surgery. He reports motivation to improve his overall health, enhance his physical appearance, and feel better about himself. The patient is engaged in ongoing mental health treatment, attending weekly tele health therapy sessions and monthly psychiatric appointments. He is currently prescribed Seroquel 200 mg for sleep. He reports a history of trauma, depression, anxiety, and substance use. In addition, he receives medication- assisted treatment (MAT) and participates in weekly substance use counseling at [facility]. Presenting Concerns Referral Source [facility]-Provider Reason for referral Completion of behavioral health assessment as part of process for weight-loss surgery. Precipitating Event Obesity. Living Situation Current Living Situation Relative's/Guardian's Shailesh At risk of losing current housing? No Satisfied with current living situation? Yes Comments PT lives at his oldest daughter home, and her 2 grandkids. Food/Weight/Diet Expectations of change PT started the program at 375Lbs. The initial goal to lose 10% of your weight before surgery, which is about 35 lbs. Ultimate weight goal: 340 lbs before surgery. weight as of 11/16/2024: 383 lbs Recent weight as of 12/27/24: 361Lbs Patient goals are to be at least at 200Lbs and to feel better in general with his health. PT is implementing the following: Current meal plan: 2 protein shakes, 2 protein bars and one meal per day. Exercise plan: Outdoor walks. 1 hr at day, 4-6 days at week. Scale: yes. Communication w/ provider: Sundays. History/Relationship with food The patient reports that he does not typically overeat; however, due to decreased physical activity related to recent medical issues, he has experienced weight gain. Example of meals before starting the program: Breakfast: eggs, pathak with bread and cheese. Pancakes. Ham and cheese sandwich. cereal w/ milk. Lunch: skip Dinner: rice with beans/chicken or any type of meat. Ghanaian style meals. Snacks: multiple at day, yogurt, cookies. Drinks/Liquids: coffee: 1-2 cups w/ creamer. Tea: none. Juice: 3 glasses, minute maid. Soda: 1-2 x month/only social. Energy Drinks: none. Milk: 1 cup at day. History/Relationship with weight Around 16 years old his weight was 175-180Lbs. PT doesn't remember his weight after. But his weight was an issue for him since he can remember History/Relationship with dieting Self-diets, reduce portions, exercise/walks. Binge Eating Do you frequently eat large amounts of food in short periods of time, not feeling physically hungry? No Do you feel out of control when you eat a large amount of food in a short period of time? No Do you eat large amounts of food rapidly and typically alone? No Night Eating Do you wake up at least once during the night to eat? No If you wake up in the night, do you find that it is necessary to eat something in order to fall back asleep? No Do you have little or no appetite in the morning and feel very hungry in the evening, often overeating between dinner and when you go to bed? No Social History Family history and relationship PT is single, never . He has 3 daughters. Father , mother alive, he has 3 siblings, 1 . He is the oldest of his siblings. Parental/Familial ware server obligations None. He was recently in [place] caring for his mother, who is older and had some medical issues and had a surgery. Developmental history and status PT had issues since he was born; he used a walking device as his feet were not aligned. Started school late due to other physical issues. Also had some attentional issues. Social support Mother. His children don't support him having surgery. Community support MH and NOLEN providers. Mandaen/Spirituality Raised as [employer], at this time He believes in God but doesn't practice or is aligned to any roman catholic. Cultural/Ethnic information PT was born in [place]. He just relocated back to [place] about a year ago; he initially moved here at age 5, but has been moving back and forth a couple of times in his life. PT is bilingual. Legal Involvement and History Current or historical involvement with the legal system? None reported. Mental Health and Addiction Treatment Current/Past substance abuse? Yes Comments PT has a history of heroin, cocaine use. Started using Substances at age 11. Did detox programs several years ago. Sober 4 years ago. PT currently attends a MAT in [place], [place] gets prescribed Methadone 80mg daily. Alcohol: None. Cigarettes/Tobacco: 1-2 at day. couple times at day. Cannabis/Edibles: None. Current/Past addictive behavior concerns? Yes Psychiatric history PT attends counseling and outpatient psychiatric treatment. Sees his therapist weekly over telehealth and a prescriber every month and gets prescribed Seroquel 200mg for sleep. PT reports a history of trauma, depression, anxiety, and substance use. Also receives medication-assisted treatment for [facility] at [facility] and meets with NOLEN counselor weekly. * PT will provide information about MH providers at the next visit. Assessment & Plan Assessment & Plan (1) History of substance dependence: Code(s): F19.21 - Other psychoactive substance dependence, in remission (2) Trauma and stressor-related disorder: Code(s): F43.9 - Reaction to severe stress, unspecified (3) Pre-bariatric surgery psychological evaluation: Code(s): Z71.89 - Other specified counseling Plan The patient had to leave the session early due to a family mental health emergency. He initially requested a brief pause and intended to reconnect, but ultimately needed to reschedule. As the assessment remains incomplete, the patient will be scheduled for a follow-up session to continue the evaluation. Additionally, a Release of Information (CATHIE) form will be required to obtain mental health records, or the patient may provide a letter directly. Next appointment: To be determined Telehealth Telehealth Telehealth Platform: [employer] Location of provider rendering services: other (Home office. [place], [place]) Location of patient: address on file Patient Identification confirmed using: Name, : Yes Telehealth method: voice only Patient verbally consented to treatment: Yes Patient verbally consented to billing insurance company: Yes Patient informed of any privacy concerns related to visit: Yes Minutes spent on Phone/Video with Pt.: 32 Coding Level of Care Code Established Pt Tele Psytx 30 mins (40292) Patient Type Established Diagnoses History of substance dependence F19.21 Trauma and stressor-related disorder F43.9 Pre-bariatric surgery psychological evaluation Z71.89 Time Spent (min) 32
== END 2024-12-28 15:11 | disposition home or self-care (01) ==
LOC: HO.HBST 14:15
PROVIDERS: Visit Provider Counselor Mental Health
DX: F19.21 Other psychoactive substance dependence, in remission (principal); F43.9 Reaction to severe stress, unspecified; Z71.89 Other specified counseling
CPT/HCPCS: 90832

== ENCOUNTER → 2025-01-07 09:21 | Outpatient (REF) | payer MEDICAID, SELFPAY ==
[2025-01-07 09:53] LABS: MANUAL DIFF FLAG NO
--- NOTE | 2025-01-07 09:58 | ECG_ITS ---
Test Reason : OBESITY Blood Pressure : */* mmHG Vent. Rate : 57 BPM Atrial Rate : 57 BPM P-R Int : 186 ms QRS Dur : 92 ms QT Int : 434 ms P-R-T Axes : 44 -3 36 degrees QTcB Int : 422 ms Sinus bradycardia Otherwise normal ECG No previous ECGs available Referred By: Ambrosio Grubbs Electronically Signed By: Nikhil Cavanaugh
[2025-01-07 10:43] LABS: Hematocrit 39.5 % (42.0-52.0); Hemoglobin 13.3 g/dl (14.0-18.0); Imm Gran Abs Auto 0.01 X10*3/uL (0.00-0.03); Imm Gran Pct Auto 0.2 % (0.0-0.4); Lymphocytes Absolute Auto 2.2 X10*3/uL (1.2-4.9); Mean Corpuscular HGB Conc 33.7 g/dl (31.0-36.0); Mean Corpuscular Hemoglobin 29.8 pg (27.0-33.0); Mean Corpuscular Volume 88.6 fL (80.0-98.0); NRBC Abs Auto 0.000 X10*3/uL (0.0-0.012); NRBC Pct Auto 0.0 /100WBC (0.0-0.2); Platelet Count 107 X10*3/uL (160-400); Red Blood Count 4.46 X10*6/uL (4.60-5.80); White Blood Count 5.9 X10*3/uL (4.8-10.8)
[2025-01-07 10:48] LABS: Hemoglobin A1C 131.0744 umol/L; Total Hemoglobin (HGBA1C) 3423.7447 umol/L
[2025-01-07 11:23] LABS: Alanine Aminotransferase 35 U/L (0-40); Albumin Level 4.2 g/dL (3.5-5.0); Alkaline Phosphatase 139 U/L (39-117); Anion Gap 10 (12-20); Aspartate Amino Transferase 29 U/L (5-37); Blood Urea Nitrogen 15 mg/dL (9-16); Calcium 9.3 mg/dL (8.4-10.2); Carbon Dioxide 29 mmol/L (22-29); Chloride 105 mmol/L (96-108); Cholesterol 143 mg/dL (<200); Estimated Glomerular Filt Rate > 60; HDL Cholesterol 34 mg/dL (>40); Iron 99 mcg/dL (45-160); Percent Iron Saturation 32 % (15-50); Potassium 4.5 mmol/L (3.3-5.1); Sodium 139 mmol/L (135-145); Total Iron Binding Capacity 307 mcg/dL (228-428); Total Protein 8.3 g/dL (6.5-8.0); Triglycerides 73 mg/dL (<150); Unsaturated Iron Binding 208 ug/dL
[2025-01-07 11:40] LABS: Ferritin 313 ng/mL (20-250)
[2025-01-07 11:44] LABS: Folate 11.2 ng/mL (> or = 4.0); Vitamin B12 701 pg/mL (200-900)
== END ==
LOC: HO.CARD 09:21
PROVIDERS: PCP Internal Medicine; Visit Provider Surgery
DX: E66.01 Morbid (severe) obesity due to excess calories (principal)
CPT/HCPCS: 36415; 80053; 80061; 82306; 82607; 82728; 82746; 83036; 83525; 83540; 84425; 84443; 84590; 84630; 85025; 86140; 93005

== ENCOUNTER → 2025-01-07 09:58 | Outpatient (BNV) | payer MEDICAID, SELFPAY | PROVIDERS: PCP Internal Medicine; Visit Provider Internal Medicine Cardiovascular Disease | DX: R00.1 Bradycardia, unspecified (principal) | CPT/HCPCS: 93010 ==

== ENCOUNTER 2025-01-13 11:19 | Outpatient (AMB) | payer OTHER, SELFPAY ==
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
== END 2025-01-13 12:02 | disposition home or self-care (01) ==
LOC: HO.HBST 11:19
PROVIDERS: PCP Internal Medicine; Visit Provider Counselor Mental Health
DX: F19.21 Other psychoactive substance dependence, in remission (principal); F43.9 Reaction to severe stress, unspecified; Z71.89 Other specified counseling
CPT/HCPCS: 90837

== ENCOUNTER → 2025-02-09 11:00 | Outpatient (REF) | payer MEDICAID, SELFPAY | LOC: HO.CARD 11:00 | PROVIDERS: PCP Internal Medicine; Visit Provider Surgery | DX: Z13.89 Encounter for screening for other disorder (principal) | CPT/HCPCS: Q9957 ==

== ENCOUNTER → 2025-05-18 10:39 | Outpatient (REF) | payer MEDICAID, SELFPAY ==
--- NOTE | 2025-05-18 10:43 | CA_ITS ---
Acquisition Time: 2025-05-18 10:51:41 Total Exercise Time: 00:05:00 Test Indications: preop Medications: see h&p Protocol: GLORIA Max HR: 171 BPM 98% of Pred: 173 BPM Max BP: 144/60 mmHG Max Work Load: 7.0 METS Exercise stress test with exercise 5 mins of Gloria Protocol, achieving 95% MPHR, with reports of SOB, no chest pain, with isolated PVCs, with nromotensive response to exercise. Without any EKG changes meeting criteria for ischemia. In recovery, breathing improved and pt feeling back to baseline. Echo images obtained by tech and post peak exercise. Definity contrast utilized. Test reviewed with Dr. Cabrera. Referred By: Ambrosio Grubbs Electronically Signed By: Alcon Morocho
== END ==
LOC: HO.CARD 10:39
PROVIDERS: PCP Internal Medicine; Visit Provider Surgery
DX: R94.31 Abnormal electrocardiogram [ECG] [EKG] (principal)
CPT/HCPCS: 93350; Q9957

== ENCOUNTER → 2025-05-18 10:43 | Outpatient (BNV) | payer MEDICAID, SELFPAY | PROVIDERS: PCP Internal Medicine | DX: R94.31 Abnormal electrocardiogram [ECG] [EKG] (principal); R06.02 Shortness of breath | CPT/HCPCS: 93016; 93018; 93350; 93352 ==